=== PATIENT | female | born 1980 | race Asian ===

== ENCOUNTER 2021-08-16 12:21 | Emergency (ER) | payer MEDICAID ==
[~2021-08-16] VITALS: Ht 167.6 cm; Wt 108.0 kg
--- NOTE | 2021-08-16 13:01 | NUR ---
[id number] FOR THROAT PAIN 06/12, CHILLS/FEVER (103F ON SAT), N/V/D SINCE SUNDAY. NO FEVER AT THIS TIME. IN ROOM AIR AND DENIES SOB. RESPIRATION REGULAR AND UNLABORED. THE PATIENT IS ATTACHED TO THE MONITOR. WILL CONTINUE TO MONITOR THE PATIENT.
--- NOTE | 2021-08-16 13:09 | NUR ---
COVID PCR COLLECTED AND SENT
[2021-08-16] MEDS ORDERED: DEXAMETHASONE SOD PHOSPHATE 10 MG/ML VIAL IV ONE (14:00)
[2021-08-16] MEDS ORDERED: ONDANSETRON HCL/PF 4 MG/2 ML VIAL IV ONE (14:00)
[2021-08-16] MEDS ORDERED: KETOROLAC TROMETHAMINE INJ 30 MG/ML VIAL IV ONE (14:00)
[2021-08-16] MEDS ORDERED: IV NS 0.9% 1,000 ML IV ONE (14:00)
[2021-08-16] MEDS ORDERED: ACETAMINOPHEN 325 MG TABLET PO ONE (14:00)
[2021-08-16] MEDS ORDERED: IBUP-1955 PO (14:10)
[2021-08-16] MEDS ORDERED: ONDA4TAB5 PO (14:10)
--- NOTE | 2021-08-16 14:32 | NUR ---
IV LINE ESTABLISHED ON LEFT HAND #22.
[2021-08-16] MEDS ORDERED: DEXAMETHASONE SOD PHOSPHATE 10 MG/ML VIAL ONE (14:34)
[2021-08-16] MEDS ORDERED: KETOROLAC TROMETHAMINE 15 MG/ML VIAL ONE (14:34)
[2021-08-16] MEDS ORDERED: ACETAMINOPHEN 325 MG TABLET ONE (14:34)
[2021-08-16] MEDS ORDERED: ONDANSETRON HCL/PF 4 MG/2 ML VIAL ONE (14:34)
[2021-08-16 15:41] VITALS: BP 110/66
--- NOTE | 2021-08-16 16:18 | NUR ---
Patient discharged to home in stable condition. Written and verbal after care instructions given. Patient verbalizes understanding of instruction. IV line removed, no bleeding noted.
== END 2021-08-16 16:18 | disposition home or self-care (01) ==
LOC: ER 12:25
DX: J06.9 Acute upper respiratory infection, unspecified (principal); B97.89 Other viral agents as the cause of diseases classified elsewhere; Z20.822 Contact with and (suspected) exposure to COVID-19; J45.909 Unspecified asthma, uncomplicated; R11.2 Nausea with vomiting, unspecified; R19.7 Diarrhea, unspecified
CPT/HCPCS: 87804; 96361; 96374; 96375; 99284; C9803; J1100; J1885; J2405; J7030; U0003